=== PATIENT | male | born 1960 | race Caucasian/White ===

== ENCOUNTER 2019-09-10 14:09 | Emergency (ER) | payer OTHER ==
[~2019-09-10] VITALS: Ht 188 cm; Wt 132.0 kg
[2019-09-10 14:40] LABS: BASO # 0.1 x10^3/uL (0.0-0.2); BASO % 1 % (0-3); EOS # 0.1 x10^3/uL (0.0-0.7); EOS % 1 % (0-3); HEMATOCRIT 44.6 % (39.0-53.0); HEMOGLOBIN 14.8 g/dL (13.0-17.5); LYMPH # 3.7 x10^3/uL (1.0-4.8); LYMPH % 45 % (24-48); MEAN CORPUSCULAR HEMOGLOBIN 29 pg (25-35); MEAN CORPUSCULAR HGB CONC 33 g/dL (31-37); MEAN CORPUSCULAR VOLUME 89 fL (79-100); MONO # 0.6 x10^3/uL (0.0-1.1); MONO % 7 % (0-9); NEUT # 3.9 x10^3/uL (1.8-7.7); NEUT % 47 % (31-73); PLATELET COUNT 272 x10^3/uL (140-400); RED BLOOD COUNT 5.03 x10^6/uL (4.30-5.70); RED CELL DISTRIBUTION WIDTH 13.7 % (11.5-14.5); WHITE BLOOD COUNT 8.3 x10^3/uL (4.0-11.0)
[2019-09-10] MEDS ORDERED: ASPIRIN CHEWABLE 81 MG TABLET. PO ONE (14:45)
[2019-09-10 14:49] LABS: PROTHROMBIN TIME PATIENT 12.4 SEC (11.7-14.0)
[2019-09-10 14:52] LABS: D-DIMER 0.65 ug/mlFEU (0.00-0.50)
[2019-09-10 14:59] LABS: CALCIUM 9.2 mg/dL (8.5-10.1); CREATININE 1.2 mg/dL (0.7-1.3); GFR 62.2; POTASSIUM 3.8 mmol/L (3.5-5.1)
--- NOTE | 2019-09-10 15:03 | PHYS DOC ---
Past Medical History Past Medical History: Diabetes-Type II, High Cholesterol General Adult EDM: Chief Complaint: CHEST PAIN HPI: HPI: Patient is a 59 year old male with history of dyslipidemia and prediabetic who presents with complaining of chest pain. Patient stated he was doing moderate activity and about an hour prior to arrival felt moderate dull and pressure in substernal area without radiation associated with shortness of breath, dizziness, palpitation that lasted about 20 to 30 minutes and did not get better with rest. Patient was able to drive himself to the ER and denies chest pain or shortness of breath during the examination. Patient states he did yard working for the last few days without any chest pain and denies history of cardiac problem. Review of Systems: Review of Systems: Constitutional: Denies fever or chills. [] Eyes: Denies change in visual acuity. [] HENT: Denies nasal congestion or sore throat. [] Respiratory: Denies cough, reports shortness of breath. [] Cardiovascular: Denies chest pain or edema. [] GI: Denies abdominal pain, nausea, vomiting, bloody stools or diarrhea. [] : Denies dysuria. [] Musculoskeletal: Denies back pain or joint pain. [] Integument: Denies rash. [] Neurologic: Denies headache, focal weakness or sensory changes. [] Endocrine: Denies polyuria or polydipsia. [] Lymphatic: Denies swollen glands. [] Psychiatric: Denies depression or anxiety. [] Heart Score: HEART Score for Chest Pain: HEART Score for Chest Pain Response (Comments) Value History Moderately Suspicious 1 ECG Nonspecific Repolarizatio 1 Age >45 - < 65 1 Risk Factors >3 Risk Factors or Hx CAD 2 Troponin < Normal Limit 0 Total 5 Risk Factors: Risk Factors: DM, Current or recent (<one month) smoker, HTN, HLP, family history of CAD, obesity. Risk Scores: Score 0 - 3: 2.5% MACE over next 6 weeks - Discharge Home Score 4 - 6: 20.3% MACE over next 6 weeks - Admit for Clinical Observation Score 7 - 10: 72.7% MACE over next 6 weeks - Early Invasive Strategies Current Medications: Current Medications Medications (Trade) Dose Ordered Sig/Ban Start Time Stop Time Status Last Admin Dose Admin Aspirin (Aspirin Chewable) 324 mg 1X ONCE 09/10/19 14:45 09/10/19 14:52 DC Allergies: Allergies: Allergies Coded Allergies Type Severity Reaction Last Updated Verified No Known Drug Allergies 09/10/19 No Physical Exam: PE: Constitutional: Well developed, well nourished, no acute distress, non-toxic appearance. [] HENT: Normocephalic, atraumatic, bilateral external ears normal, oropharynx moist, no oral exudates, nose normal. [] Eyes: PERRLA, EOMI, conjunctiva normal, no discharge. [] Neck: Normal range of motion, no tenderness, supple, no stridor. [] Cardiovascular: Tachycardia, no murmur [] Lungs & Thorax: Bilateral breath sounds clear to auscultation [] Abdomen: Bowel sounds normal, soft, no tenderness, no masses, no pulsatile masses. [] Skin: Warm, dry, no erythema, no rash. [] Back: No tenderness, no CVA tenderness. [] Extremities: No tenderness, no cyanosis, no clubbing, ROM intact, no edema. [] Neurologic: Alert and oriented X 3, normal motor function, normal sensory function, no focal deficits noted. [] Psychologic: Affect normal, judgement normal, mood normal. [] Current Patient Data: Labs: Laboratory Tests Test 09/10/19 14:20 White Blood Count 8.3 x10^3/uL (4.0-11.0) Red Blood Count 5.03 x10^6/uL (4.30-5.70) Hemoglobin 14.8 g/dL (13.0-17.5) Hematocrit 44.6 % (39.0-53.0) Mean Corpuscular Volume 89 fL (79-100) Mean Corpuscular Hemoglobin 29 pg (25-35) Mean Corpuscular Hemoglobin Concent 33 g/dL (31-37) Red Cell Distribution Width 13.7 % (11.5-14.5) Platelet Count 272 x10^3/uL (140-400) Neutrophils (%) (Auto) 47 % (31-73) Lymphocytes (%) (Auto) 45 % (24-48) Monocytes (%) (Auto) 7 % (0-9) Eosinophils (%) (Auto) 1 % (0-3) Basophils (%) (Auto) 1 % (0-3) Neutrophils # (Auto) 3.9 x10^3/uL (1.8-7.7) Lymphocytes # (Auto) 3.7 x10^3/uL (1.0-4.8) Monocytes # (Auto) 0.6 x10^3/uL (0.0-1.1) Eosinophils # (Auto) 0.1 x10^3/uL (0.0-0.7) Basophils # (Auto) 0.1 x10^3/uL (0.0-0.2) Prothrombin Time 12.4 SEC (11.7-14.0) Prothrombin Time INR 1.0 (0.8-1.1) D-Dimer (Junie) 0.65 ug/mlFEU (0.00-0.50) H Laboratory Tests 09/10/19 14:20 EKG: EKG: EKG interpreted by me. EKG at 1417 showed sinus tachycardia at rate of 107, normal CT and QT intervals, poor R wave progression anteroseptal leads, no acute ST and T wave elevation. Radiology/Procedures: Radiology/Procedures: [facility] [address] [place] [address] IMAGING REPORT Signed PATIENT: HEMANTH BARCLAY ACCOUNT: [id number] : 1960 LOCATION: ER AGE: 59 SEX: M EXAM STATUS: REG ER ORD. PHYSICIAN: MIREYA BLACK MD REASON: chest pain PROCEDURE: PORTABLE CHEST 1V PORTABLE CHEST 1V History: Chest pain Comparison: None. Findings: Low lung volumes. No consolidation or pleural effusion. Normal heart size. No pneumothorax. Impression: 1. No acute cardiopulmonary process. Electronically signed by: Kavon Reyes DO (09/10/2019 3:36 PM) [id number] DICTATED and SIGNED BY: KAVON REYES DO DATE: 09/10/19 1536 Course & Med Decision Making: Course & Med Decision Making Pertinent Labs and Imaging studies reviewed. (See chart for details) Evaluation of patient in ER showed 59-year-old male patient with heart score of 5 with complaining of chest pain and shortness of breath after moderate activity. Patient had unremarkable EKG and labs and chest x-ray. Patient was chest pain-free in ER. I offered patient hospitalization but he prefers to go home. Patient PCP Dr. Carbone was consulted at 1555 and agreed with discharging patient home and plans to ordering outpatient cardiology consult and stress and echo test. I've spoken with the patient and/or caregivers. I've explained the patient's condition, diagnosis and treatment plan based on information available to me at this time. I've answered the patient's and/or caregivers questions and addressed any concerns. The patient and/or caregivers have a good understanding the patient's diagnosis, condition and treatment plan as can be expected at this point. Vital signs have been stabilized. The patient's condition is stable for discharge from the emergency department. The patient will pursue further outpatient evaluation with her primary care provider or other designated consulting physician as outlined in the discharge instructions. Patient and/or caregivers are agreeable to this plan of care and follow-up instructions have been explained in detail. The patient and/or caregivers have received these instructions in written format and expressed understanding of these discharge instructions. The patient and her caregivers are aware that if any significant change in condition or worsening of symptoms should prompt him to immediately return to this of the closest emergency de partment. If an emergent department is not readily available I would encourage him to call 911. Chelsi Disclaimer: Chelsi Disclaimer: This electronic medical record was generated, in whole or in part, using a voice recognition dictation system. Departure Departure Impression: Primary Impression: Acute chest pain Disposition: HOME, SELF-CARE (At 1559) Condition: IMPROVED Referrals: NILO BROWN MD (PCP) Patient Instructions: Chest Pain (Nonspecific) Additional Instructions: Continue current medication Follow-up with your primary care physician i for outpatient stress test and cardiology appointment Return to ER if not getting better Avoid of heavy activity Thank you for visiting [facility]. We appreciate you trusting us with your care. If any additional problems come up don't hesitate to return to visit us. Please follow up with your primary care provider so they can plan additional care if needed and know about the problem that you had. If symptoms worsen come back to the Emergency Department. Any concerning symptoms that start such as chest pain, shortness of air, weakness or numbness on one side of the body, running high fevers or any other concerning symptoms return to the ER. MIREYA BLACK MD Sep 10, 2019 15:03
[2019-09-10 15:05] LABS: ALBUMIN/GLOBULIN RATIO 1.2 (1.0-1.7); MAGNESIUM 1.8 mg/dL (1.8-2.4); TOTAL BILIRUBIN 0.7 mg/dL (0.2-1.0); TOTAL PROTEIN 7.3 g/dL (6.4-8.2)
--- NOTE | 2019-09-10 15:38 | RAD ---
PORTABLE CHEST 1V History: Chest pain Comparison: None. Findings: Low lung volumes. No consolidation or pleural effusion. Normal heart size. No pneumothorax. Impression: 1. No acute cardiopulmonary process. Electronically signed by: Kavon Reyes DO (09/10/2019 3:36 PM) [id number]
[2019-09-10 15:45] VITALS: BP 138/84
--- NOTE | 2019-09-10 16:03 | EKG ---
[facility] [address] [place] [address] Test Date: 2019-09-10 Test Time: 14:17:13 Pat Name: HEMANTH BARCLAY Department: Room: Gender: M Surgery Aid: : 1960 Requested By: MIREYA BLACK Order Number: [id number] Reading MD: Lonnie Littlejohn Measurements Intervals [place] Rate: 106 P: 41 NM: 156 QRS: 39 QRSD: 102 T: 47 QT: 354 QTc: 478 Interpretive Statements SINUS TACHYCARDIA NONSPECIFIC ST-T WAVE CHANGES. Electronically Signed On 09-11-2019 9:22:44 CDT by Lonnie Littlejohn
[2019-09-15] MEDS ORDERED: ASPI81TA50 PO (09:08)
[2019-09-15] MEDS ORDERED: ATOR20TA58 PO (09:09)
[2019-09-15] MEDS ORDERED: METF500T16 PO (09:09)
[2019-09-15] MEDS ORDERED: ATOR40TA59 PO (10:56)
[2019-09-15] MEDS ORDERED: PRAS10TA9 PO (10:56)
[2019-09-15] MEDS ORDERED: METO25TA4 PO (10:56)
[2019-09-15] MEDS ORDERED: ASPI325T8 PO (11:00)
== END 2019-09-10 16:12 | disposition home or self-care (01) ==
LOC: ER 14:09
DX: R07.2 Precordial pain (principal); E11.9 Type 2 diabetes mellitus without complications; E78.00 Pure hypercholesterolemia, unspecified
CPT/HCPCS: 36415; 71045; 80053; 82550; 83690; 83735; 83880; 84484; 85025; 85379; 85610; 93005; 99285

== ENCOUNTER → 2019-09-15 | Outpatient (CLI) | payer OTHER ==
[2019-09-15] VITALS (17 sets, daily range): BP systolic 94–133; BP diastolic 60–84
[~2019-09-15] VITALS: Ht 188 cm; Wt 128.8 kg
[~2019-09-15] MED LIST: ASPI325T8 PO; ASPI81TA50 PO; ASPIRIN 325 MG TABLET ONE; ASPIRIN 325 MG TABLET PO ONE; ASPIRIN ENTERIC COATED 325 MG TABLET.DR. PO SCH; ATOR20TA58 PO; ATOR40TA59 PO; ATORVASTATIN CALCIUM 20 MG TABLET PO SCH; BIVALIRUDIN 250 MG VIAL. IV ONE; HEPARIN for IV BOLUS 10,000 UNIT/10 ML VIAL. IART ONE; HEPARIN for IV BOLUS 10,000 UNIT/10 ML VIAL. ONE; IODIXANOL 320 MG/ML 100 ML VIAL. IART ONE; IODIXANOL 320 MG/ML 100 ML VIAL. ONE; IV 1/2 NORMAL SALINE 1,000 ML IV SCH; LIDOCAINE 1% PF 2 ML VIAL. INJ ONE; LIDOCAINE 1% PF 2 ML VIAL. ONE; METF500T16 PO; METO25TA4 PO; METOPROLOL TART IMMED RELEASE 25 MG TABLET. PO SCH; MIDAZOLAM HCL/PF 2 MG/2 ML VIAL. IV ONE; MIDAZOLAM HCL/PF 2 MG/2 ML VIAL. ONE; NITROGLYCERIN 200 MCG/2 ML SYRINGE FOR CATH/VASC LAB. IART ONE; NITROGLYCERIN 200 MCG/2 ML SYRINGE FOR CATH/VASC LAB. ONE; NITROGLYCERIN SUBLINGUAL 0.4 MG BOTTLE OF 25. SL PRN; PRAS10TA9 PO; PRASUGREL 10 MG TABLET. ONE; PRASUGREL 10 MG TABLET. PO ONE; PRASUGREL 10 MG TABLET. PO SCH; VERAPAMIL 5 MG/2 ML VIAL. IART ONE; VERAPAMIL 5 MG/2 ML VIAL. ONE; fentaNYL PF VIAL 100 MCG/2 ML VIAL IV ONE; fentaNYL PF VIAL 100 MCG/2 ML VIAL ONE
[2019-09-15 08:08] LABS: CALCIUM 9.3 mg/dL (8.5-10.1); GFR 76.7
[2019-09-15 08:23] LABS: HEMATOCRIT 45.9 % (39.0-53.0); HEMOGLOBIN 15.3 g/dL (13.0-17.5); RED BLOOD COUNT 5.21 x10^6/uL (4.30-5.70); RED CELL DISTRIBUTION WIDTH 13.8 % (11.5-14.5); WHITE BLOOD COUNT 8.3 x10^3/uL (4.0-11.0)
[2019-09-15 08:34] LABS: PROTHROMBIN TIME PATIENT 12.4 SEC (11.7-14.0)
--- NOTE | 2019-09-15 09:16 | PDOC ---
MODERATE SEDATION ASSESSMENT RISKS/ALTERNATIVES Risks/Alternatives Risks and alternatives of this type of sedation and procedure discussed with: RISK/ALTERNATIVES: Patient H & P ON CHART H & P H & P on chart and reviewed for co-morbid conditions and appropriate labs. H&P ON CHART: Yes STATUS PREG STATUS ASSESSED: N/A MEDS/ALLERGIES REVIEWED Meds/Allergies Reviewed Medications and Allergies including time and route of recently administered narcotics and sedatives. MEDS/ALLERGIES REVIEWED: Yes ASA RATING ASA RATING: II AIRWAY ASSESSMENT Airway Assessment Airway patency, oral function limitations, presence of caps, crowns, dentures, partials, and ability to extend neck assessed. AIRWAY ASSESSMENT: Yes MALLAMPATI SCORE MALLAMPATI SCORE: II PRE-SEDATION ASSESSMENT PRE-SEDATION ASSESSMENT: Yes SNOW DIAZ MD Sep 15, 2019 09:16
--- NOTE | 2019-09-15 09:25 | CARD ---
MR#: [id number] Date of Study: 09/15/2019 Ordering Physician: SNOW DIAZ, Referring Physician: SNOW DIAZ, Tech: Roderick Rojas APPROVED REPORT Technologist: Roderick Rojas Nurse: Toña Perales R.N. Procedure(s) performed: 1. Left heart catheterization, selective coronary angiography and left ventr iculography via right transradial approach 2. Successful PCI/drug-eluting stent placement to the left anterior ascending artery. fl time: 10.1 min dose: 107 gycm2 contrast: 158 ml moderate sedation: 43 MINS INDICATION The indication(s) include : unstable angina . CSHA Clinical Frailty Scale CSHA Clinical Frailty Scale: Managing Well Heart Failure Heart Failure: No PROCEDURE NARRATIVE After explaining the risks, benefits and alternative options, informed consent was obtained from toya ent. Patient was brought to the cardiac Dealership General Manager and right wrist was prepped and draped in the usual fashion after confirming a positive modified Molina's test. Arterial access was obtained in the righ t radial artery and a 6 [place] sheath was inserted. 6 [place] Deonte catheter was used to perform ana m ective angiography of the left and right coronary arteries. 6 [place] pigtail catheter was used to pe rform left ventriculography. The following findings were noted. FINDINGS 1. Hemodynamics: Left ventricular end-diastolic pressure of 7 mmHg. No pullback gradient across the aortic valve. 2. Left ventriculography: Normal left ventricle systolic function with ejection fraction estimated at 55%. No significant mitral regurgitation seen. 3. Coronary angiography: a. The left main coronary artery arose from the left sinus of Valsalva, gave rise to the left anteri or descending and left circumflex arteries and did not show any significant stenosis. b. The left anterior descending artery showed 90 to 95% stenosis involving the proximal to mid segme nt and 40% bifurcation stenosis involving mid to distal segment. c. The left circumflex artery was a large and dominant vessel that did not show any significant sten osis. d. The right coronary artery was a small and nondominant vessel that did not show any significant st enosis. INTERVENTION The left main coronary artery was engaged with a 6 [place] XB 3.5 guide catheter. The stenosis in the proximal to mid segment of the left anti-descending artery was crossed with a 0.014 inch AsaZola pro-w ater guidewire. This was predilated with a 2.5 x 15 mm trek balloon following which this was success fully treated with a 3.0 x 18 mm Amado Xience Negrita drug-eluting stent. Follow-up angiography show ed resolution of the stenosis to 0% with HERNANDEZ-3 distal flow. Patient tolerated the procedure well. Hemostasis was achieved using TR band. There were no immediate complications. HERNANDEZ Flow HERNANDEZ Flow (Pre-Intervention): HERNANDEZ-2 HERNANDEZ Flow (Post-Intervention): HERNANDEZ-3 Conclusion 1. Severe single-vessel coronary disease. 2. Successful PCI/drug-eluting stent placement to the left anterior descending artery. 3. Normal left ventricular systolic function with ejection fraction estimated at 55%. Recommendations 1. Aspirin 325 mg daily for 1 month followed by 81 mg daily. 2. Prasugrel 10 mg daily. 3. Cardiovascular risk factor modification including smoking cessation. Signed by : Snow Diaz, Electronically Approved : 09/15/2019 09:24:46
--- NOTE | 2019-09-15 12:46 | NUR ---
referral sent to cardiac rehab.
--- NOTE | 2019-09-15 14:20 | NUR ---
pt A&O x3. denies pain, nausea or dizziness. VSS. tolerating po well. ambulated to Br w/o problem. rt radial site cleaned and dry dressing applied. armboard reapplied to rt hand/wrist area. scripts for nitro sl , atorvastatin , metoprolol and effient called into pt's pharmacy. d/c instructions given. questions answered. out to vehicle per w/c. pt's to drive him home
== END ==
LOC: CCL 07:20
PROVIDERS: ATTEND Internal Medicine Cardiovascular Disease
DX: I25.110 Atherosclerotic heart disease of native coronary artery with unstable angina pectoris (principal); E11.9 Type 2 diabetes mellitus without complications; E78.5 Hyperlipidemia, unspecified; F17.210 Nicotine dependence, cigarettes, uncomplicated; Z79.82 Long term (current) use of aspirin; Z79.84 Long term (current) use of oral hypoglycemic drugs
CPT/HCPCS: 36415; 80048; 85027; 85610; 93458; 99152; 99153; C1725; C1769; C1874; C1887; C1892; C9600; J0583; J1644; J2250; J3010; J3490; Q9967; 92928; C1713

== ENCOUNTER → 2020-05-04 | Outpatient (CLI) | payer BC ==
[2019-09-15 13:59] VITALS: BP 118/69
[~2020-05-04] MED LIST changes: -ASPIRIN 325 MG TABLET ONE; -ASPIRIN 325 MG TABLET PO ONE; -ASPIRIN ENTERIC COATED 325 MG TABLET.DR. PO SCH; -ATORVASTATIN CALCIUM 20 MG TABLET PO SCH; -BIVALIRUDIN 250 MG VIAL. IV ONE; -HEPARIN for IV BOLUS 10,000 UNIT/10 ML VIAL. IART ONE; -HEPARIN for IV BOLUS 10,000 UNIT/10 ML VIAL. ONE; -IODIXANOL 320 MG/ML 100 ML VIAL. IART ONE; -IODIXANOL 320 MG/ML 100 ML VIAL. ONE; -IV 1/2 NORMAL SALINE 1,000 ML IV SCH; -LIDOCAINE 1% PF 2 ML VIAL. INJ ONE; -LIDOCAINE 1% PF 2 ML VIAL. ONE; -METOPROLOL TART IMMED RELEASE 25 MG TABLET. PO SCH; -MIDAZOLAM HCL/PF 2 MG/2 ML VIAL. IV ONE; -MIDAZOLAM HCL/PF 2 MG/2 ML VIAL. ONE; -NITROGLYCERIN 200 MCG/2 ML SYRINGE FOR CATH/VASC LAB. IART ONE; -NITROGLYCERIN 200 MCG/2 ML SYRINGE FOR CATH/VASC LAB. ONE; -NITROGLYCERIN SUBLINGUAL 0.4 MG BOTTLE OF 25. SL PRN; -PRASUGREL 10 MG TABLET. ONE; -PRASUGREL 10 MG TABLET. PO ONE; -PRASUGREL 10 MG TABLET. PO SCH; -VERAPAMIL 5 MG/2 ML VIAL. IART ONE; -VERAPAMIL 5 MG/2 ML VIAL. ONE; -fentaNYL PF VIAL 100 MCG/2 ML VIAL IV ONE; -fentaNYL PF VIAL 100 MCG/2 ML VIAL ONE
--- NOTE | 2020-05-04 09:10 | CARD ---
MR#: [id number] Date of Study: 05/04/2020 Ordering Physician: SNOW DIAZ, Referring Physician: SNOW DIAZ, Tech: Michelle Veliz RACHEL APPROVED REPORT EXAM: Two-dimensional and M-mode echocardiogram with Doppler and color Doppler. Other Information Quality : AdequateHR: 69bpm Rhythm : NSR INDICATION CAD Hx: PCI, HLP, DM, obesity 2D DIMENSIONS RVDd3.4 (2.9-3.5cm)IVSd0.9 (0.7-1.1cm) Aortic Root(2D)3.7 (2.0-3.7cm)LVDd6.2 (3.9-5.9cm) LVOT Diameter2.2 (1.8-2.4cm)PWd0.9 (0.7-1.1cm) LVDs5.1 (2.5-4.0cm)FS (%) 17.8 % SV70.4 mlLVEF(%)36.2 (>50%) Aortic Valve AoV Peak Júnior.109.2cm/Juaquin Peak GR.4.8mmHg Mitral Valve MV E Ikettmxu16.0cm/sMV DECEL [id number] MV A Rkwxxwtl85.0cm/sE/A Ratio0.7 MV A [id number] Pulmonary Valve PV Peak Bzgbdrxe84.0cm/s Tricuspid Valve RAP [id number] LEFT VENTRICLE The Left Ventricle is mildly dilated. There is normal left ventricular wall thickness. Left ventricul ar systolic function is within normal limits. EF 55%. Basal to mid inferior wall is moderately hypoki netic. Otherwise, normal wall motion. Mild diastolic dysfunction. Grade I. RIGHT VENTRICLE The right ventricle is normal size. The right ventricular systolic function is normal. ATRIA The left atrium size is normal. The right atrium size is normal. The interatrial septum is intact wit h no evidence for an atrial septal defect or patent foramen ovale as noted on 2-D or Doppler imaging. AORTIC VALVE The aortic valve is normal in structure and function. No aortic regurgitation. No aortic valvular gisell nosis. MITRAL VALVE The mitral valve is normal in structure and function. There is no mitral valve stenosis. No mitral va lve regurgitation noted. TRICUSPID VALVE The tricuspid valve is normal in structure and function. No tricuspid valve regurgitation noted. Unab le to assess PA pressures. There is no tricuspid valve stenosis. PULMONIC VALVE The pulmonic valve is not well visualized. GREAT VESSELS The aortic root is normal in size. Ascending aorta measures at the upper limits of normal. The IVC is normal in size and collapses >50% with inspiration. PERICARDIAL EFFUSION There is no evidence of significant pericardial effusion. Critical Notification Critical Value: No <Conclusion> Left ventricular systolic function is within normal limits. EF 55%. Basal to mid inferior wall is moderately hypokinetic. Otherwise, normal wall motion. Signed by : Stas Mello, Electronically Approved : 05/04/2020 09:09:50
--- NOTE | 2020-05-04 13:05 | RAD ---
MR#: [id number] Date of Study: 05/04/2020 Ordering Physician: SNOW DIAZ, Referring Physician: SNOW DIAZ, Tech: Nakul Branham RDMS, RVT APPROVED REPORT Patient Location: OUT-PATIENT Laterality:Bilateral Indications Some Lightheadedness when beding over and standing back up. Risk Factors Diabetes Smoking coronary artery disease Doppler Spectral Velocity Analysis Right Left pCCA 104/16 cm/spCCA 118/20 cm/s mCCA 122/19 cm/smCCA 107/19 cm/s dCCA 93/20 cm/sdCCA 105/19 cm/s Bulb 71/13 cm/sBulb 72/15 cm/s ECA 148/ cm/sECA 112/ cm/s pICA 89/21 cm/spICA 75/23 cm/s Meme 71/22 cm/smICA 101/28 cm/s dICA 67/20 cm/sdICA 93/35 cm/s Vert. 52/ cm/sVert. 47/ cm/s ICA/CCA 0.73ICA/CCA 0.86 Findings Grayscale images of the bilateral carotid vasculature demonstrates mild intimal hyperplasia without a ny focal obstructive plaque. Spectral waveforms and color Doppler are overall consistent with 0 to l ess than 50% stenosis. Normal ICA to CCA ratios. Normal vertebral antegrade velocities. Critical Notification Critical Value: No <Conclusion> 1. No significant carotid occlusive disease bilaterally Signed by : Stas Mello, Electronically Approved : 05/04/2020 13:04:28
== END ==
LOC: ECHO 07:53
PROVIDERS: ATTEND Internal Medicine Cardiovascular Disease
DX: I65.23 Occlusion and stenosis of bilateral carotid arteries (principal); I25.10 Atherosclerotic heart disease of native coronary artery without angina pectoris
CPT/HCPCS: 93306; 93880

== ENCOUNTER → 2020-11-03 | Outpatient (CLI) | payer BC ==
[2019-09-15 13:59] VITALS: BP 118/69
--- NOTE | 2020-11-03 14:48 | RAD ---
MR#: [id number] Date of Study: 11/03/2020 Ordering Physician: SNOW DIAZ, Referring Physician: SHY SR Tech: KEREN Buckley APPROVED REPORT Test Type: Exercise Stress Nurse/Tech: Marcel Edmond RN Test Indications: CAD Cardiac History: Stent 2020, HTN, DM Medications: See Electronic Medical Record Medical History: See Electronic Medical Record Resting ECG: SR Resting Heart Rate: 72 bpm Resting Blood Pressure: 140/78mmHg Pretest Chest Pain: None Nurse/Tech Notes Lungs CTA, S1S2 Consent: The procedure was explained to the patient in lay terms. Informed consent was witnessed. Brian eout was entered into [employer]. History and Stress Test performed by KEREN Buckley Stress Symptoms No chest pain or symptoms. POST EXERCISE Reason for Termination: Reached target heart rate Target HR: Yes Max HR: 155 bpm 96% of Maximum Predicted HR: 161 bpm Exercise duration: 5:56 min:sec, Stage Exercise capacity: 7METs Max Blood Pressure: 148/72mmHg Blood Pressure response to exercise: Normal blood pressure response during stress. Heart Rate response to exercise: Normal response Chest Pain: No. Arrhythmia: No. INTERPRETATION Stress EKG Conclusion: The resting EKG shows a sinus rhythm. The stress EKG shows no significant changes from baseline. No EKG evidence of stress-induced ischemia. Imaging Protocol IMAGE PROTOCOL: Rest Tc-99m/stress Tc-99m 1 day Rest: Stress: Viability: Radiopharm.Tc99m KaydfvywmKo42m Sestamibi Qday72uAr 31mCi Duration 15min. 13min. Img Date 11/03/2020 11/03/2020 Inj-Img Punc26kos. 60min. Post-Injection Exercise: 1 minute Rest Admin Site:IV - Right HandAdministrator:ALBA Allred, ARRT (R)(N) Stress Admin Site: IV - Right HandAdministrator: ALBA Allred, ARRT (R)(N) STRESS DATA End Diast. Vol.121.0mlLVEDV index BSA48.0ml End Syst. Vol.43.0mlLVESV index BSA17.0ml Myocardial Srdm131.0gEject. Ffafvqwg67.0% Stress Scores Regional WT0.00Summed WT6.00 Regional WM0.00Summed WM0.00 LV Perfusion The stress scans show no significant defects. The rest scans show no significant defects. Nuclear imaging shows no reversible ischemia or infarct. Wall Motion Left ventricular systolic function is intact with no regional wall motion abnormalities and an ejecti on fraction of 62%. LV Perf. Quant 17 Seg. SSS1.00 17 Seg. SRS8.00 17 Seg. SDS0.00 Stress Defect Extent (% LAD)0.00Rest Defect Extent (% LAD)26.90Rev. Defect Extent (% LAD)0.00 Stress Defect Extent (% LCX) 11.30Rest Defect Extent (% LCX)18.80Rev. Defect Extent (% LCX)0.00 Stress Defect Extent (% RCA)0.00Rest Defect Extent (% RCA)3.30Rev. Defect Extent (% RCA)0.00 Stress Defect Extent (% LARRY)3.70Rest Defect Extent (% LARRY)19.30Rev. Defect Extent (% LARRY)0.00 Conclusion 1. Good exercise tolerance with the patient walking for 5 minutes and 56 seconds on a Panfilo protocol. 2. No chest pain with exertion. 3. No EKG evidence of stress-induced ischemia. 4. Nuclear imaging shows no reversible ischemia or infarct. 5. Left ventricular ejection fraction of 62% with no regional wall motion abnormalities. 6. Low risk treadmill nuclear stress test. Signed by : Lonnie Littlejohn MD Electronically Approved : 11/03/2020 14:48:09
== END ==
LOC: NM 08:17
PROVIDERS: ATTEND Internal Medicine Cardiovascular Disease
DX: I25.10 Atherosclerotic heart disease of native coronary artery without angina pectoris (principal); I10 Essential (primary) hypertension
CPT/HCPCS: 78452; 93017; A9500

== ENCOUNTER 2021-01-24 11:17 | Observation (INO) | payer BC ==
[~2021-01-24] VITALS: Ht 188 cm; Wt 136.6 kg
--- NOTE | 2021-01-24 11:45 | PHYS DOC ---
Past Medical History Past Medical History: Diabetes-Type II, High Cholesterol Past Surgical History: Other Additional Past Surgical Histo: R hand surgery Smoking Status: Current Some Day Smoker Alcohol Use: None General Adult EDM: Chief Complaint: CHEST PAIN HPI: HPI: 89-year-old male with a history of high cholesterol, diabetes, hypertension, smoking presents to the emergency department complaining of chest pain on the right side of his chest that feels like a "twinge ", intermittently feels like an "egg was stuck in my throat ". He reports the pain started approximately 40 minutes ago, is coming less frequently and is intermittent in nature. The pain started while he was doing yard work picking up sticks in the yard. He reports his symptoms are currently mild. He endorses diaphoresis when he was having [address] pain originally. The patient denies nausea, vomiting, fever, chills, shortness of breath, abdominal pain, urinary symptoms, cough, recent trauma, or any other complaints. Review of Systems: Review of Systems: Constitutional: Denies fever or chills. Eyes: Denies change in vision, pain. HENT: Denies congestion or sore throat. Respiratory: Denies cough or shortness of breath. Cardiovascular: Admits to chest pain, denies edema. GI: Denies abdominal pain, nausea. : Denies change in urination, dysuria. Musculoskeletal: Denies extremity pain, or trauma. Skin: Denies rash, skin change. Neurologic: Denies headache, focal weakness. Psychiatric: Denies depression or anxiety. All other systems reviewed as negative except for what was mentioned in the HPI. Heart Score: C/O Chest Pain: Yes HEART Score for Chest Pain: HEART Score for Chest Pain Response (Comments) Value History Moderately Suspicious 1 ECG Normal 0 Age >45 - < 65 1 Risk Factors >3 Risk Factors or Hx CAD 2 Troponin < Normal Limit 0 Total 4 Allergies: Allergies: Allergies Coded Allergies Type Severity Reaction Last Updated Verified No Known Drug Allergies 09/10/19 No Physical Exam: PE: Constitutional: No acute distress, non-toxic appearance. HENT: Atraumatic, bilateral external ears normal, nose normal. Eyes: PERRLA, EOMI, conjunctiva normal, no discharge. Neck: Normal range of motion, supple, no stridor. Cardiovascular: Heart rate regular rhythm. 2+ radial pulses Lungs & Thorax: No respiratory distress, symmetrical expansion. Abdomen: Soft, no tenderness Skin: Warm, dry. Extremities: No tenderness, no cyanosis, ROM intact, no edema. Neurologic: Alert and oriented X 3, normal motor function, normal sensory function, no focal deficits noted. Non ataxic gait. GCS 15. Psychologic: Affect normal, judgment normal, mood normal. Current Patient Data: Labs: Laboratory Tests Test 01/24/21 11:42 White Blood Count 8.3 x10^3/uL (4.0-11.0) Red Blood Count 4.95 x10^6/uL (4.30-5.70) Hemoglobin 15.0 g/dL (13.0-17.5) Hematocrit 43.6 % (39.0-53.0) Mean Corpuscular Volume 88 fL (79-100) Mean Corpuscular Hemoglobin 30 pg (25-35) Mean Corpuscular Hemoglobin Concent 34 g/dL (31-37) Red Cell Distribution Width 13.3 % (11.5-14.5) Platelet Count 270 x10^3/uL (140-400) Neutrophils (%) (Auto) 58 % (31-73) Lymphocytes (%) (Auto) 33 % (24-48) Monocytes (%) (Auto) 7 % (0-9) Eosinophils (%) (Auto) 1 % (0-3) Basophils (%) (Auto) 1 % (0-3) Neutrophils # (Auto) 4.8 x10^3/uL (1.8-7.7) Lymphocytes # (Auto) 2.7 x10^3/uL (1.0-4.8) Monocytes # (Auto) 0.6 x10^3/uL (0.0-1.1) Eosinophils # (Auto) 0.1 x10^3/uL (0.0-0.7) Basophils # (Auto) 0.0 x10^3/uL (0.0-0.2) Sodium Level 139 mmol/L (136-145) Potassium Level 4.0 mmol/L (3.5-5.1) Chloride Level 103 mmol/L (98-107) Carbon Dioxide Level 27 mmol/L (21-32) Anion Gap 9 (6-14) Blood Urea Nitrogen 13 mg/dL (8-26) Creatinine 1.2 mg/dL (0.7-1.3) Estimated GFR (Cockcroft-Gault) 62.0 Glucose Level 162 mg/dL (70-99) Calcium Level 9.4 mg/dL (8.5-10.1) Troponin I Quantitative < 0.017 ng/mL (0.000-0.055) AP-Adw-U-Type Natriuretic Peptide 23 pg/mL (0-124) Vital Signs: Vital Signs Date Time Temp Pulse Resp B/P (MAP) Pulse Ox O2 Delivery O2 Flow Rate FiO2 01/24/21 11:53 98.1 88 18 145/85 (100) 97 Room Air 98.1 EKG: EKG: Normal sinus rhythm rate of 95, no ST-T wave changes, no ectopic beats, normal axis, normal AL, QRS, and QTc intervals. Impression: Normal EKG. interpreted by Cherie garcia D.O. Radiology/Procedures: Radiology/Procedures: EXAM: Chest, single view. HISTORY: Chest pain. COMPARISON: None. FINDINGS: A frontal view of the chest is obtained. There are relative decreased lung volumes. There is mild diffuse interstitial prominence. There is no consolidation, pleural effusion or pneumothorax. There is a prominent cardiac s ilhouette, likely accentuated due to portable technique. IMPRESSION: Mild interstitial prominence likely due to relative decreased lung volumes. There is no consolidated infiltrate or chris congestion. Electronically signed by: Conchita Garvey MD (01/24/2021 12:16 PM) Course & Med Decision Making: Course & Med Decision Making My Orders - CHERIE WILLSON DO Procedure Category Date Status Time Basic Metabolic Panel LAB 01/24/21 Complete 11:41 Cbc W Autodiff LAB 01/24/21 Complete 11:41 Portable Chest 1v RAD 01/24/21 Resulted 11:41 Nt-Pro Bnp LAB 01/24/21 Complete 11:41 Troponini LAB 01/24/21 Complete 11:41 Troponini LAB 01/24/21 Logged 14:41 Troponini LAB 01/24/21 Logged 17:41 Sars Cov2 (Anna) LAB 01/24/21 Logged 11:55 Sars-Cov-2 Antibody, LAB 01/24/21 Logged Igg,Dickson 11:55 Patient with heart score 4, will admit for abs, was offered pain medicine and refused. EKG does not show ST elevation or ischemic change. Patient will be admitted to Dr. Brown Departure Departure Impression: Primary Impression: Chest pain Disposition: HOME / SELF CARE / HOMELESS Admitting Physician: Katherin Brown Condition: STABLE Referrals: KATHERIN BROWN MD (PCP) CHERIE WILLSON DO Jan 24, 2021 11:45
[2021-01-24 11:55] LABS: BASO % 1 % (0-3); EOS # 0.1 x10^3/uL (0.0-0.7); EOS % 1 % (0-3); HEMATOCRIT 43.6 % (39.0-53.0); LYMPH # 2.7 x10^3/uL (1.0-4.8); LYMPH % 33 % (24-48); MEAN CORPUSCULAR HEMOGLOBIN 30 pg (25-35); MEAN CORPUSCULAR HGB CONC 34 g/dL (31-37); MEAN CORPUSCULAR VOLUME 88 fL (79-100); MONO # 0.6 x10^3/uL (0.0-1.1); MONO % 7 % (0-9); NEUT # 4.8 x10^3/uL (1.8-7.7); NEUT % 58 % (31-73); PLATELET COUNT 270 x10^3/uL (140-400); RED BLOOD COUNT 4.95 x10^6/uL (4.30-5.70); RED CELL DISTRIBUTION WIDTH 13.3 % (11.5-14.5); WHITE BLOOD COUNT 8.3 x10^3/uL (4.0-11.0)
[2021-01-24 12:11] LABS: CALCIUM 9.4 mg/dL (8.5-10.1); CREATININE 1.2 mg/dL (0.7-1.3)
--- NOTE | 2021-01-24 12:19 | RAD ---
EXAM: Chest, single view. HISTORY: Chest pain. COMPARISON: None. FINDINGS: A frontal view of the chest is obtained. There are relative decreased lung volumes. There i s mild diffuse interstitial prominence. There is no consolidation, pleural effusion or pneumothorax. There is a prominent cardiac silhouette, likely accentuated due to portable technique. IMPRESSION: Mild interstitial prominence likely due to relative decreased lung volumes. There is no c onsolidated infiltrate or chris congestion. Electronically signed by: Conchita Garvey MD (01/24/2021 12:16 PM) [id number]
--- NOTE | 2021-01-24 18:43 | EKG ---
[facility] [address] [place] [address] Test Date: 2021-01-24 Test Time: 11:24:57 Pat Name: HEMANTH BARCLAY Department: Room: ED HOLD 4 Gender: M Utility Bill Collector: : 1960 Requested By: CHERIE WILLSON Order Number: [id number] Reading MD: Measurements Intervals [place] Rate: 95 P: 34 CO: 122 QRS: 13 QRSD: 158 T: 0 QT: 402 QTc: 509 Interpretive Statements SINUS RHYTHM NON SPECIFIC INTRAVENTRICULAR BLOCK QRS(T) CONTOUR ABNORMALITY CONSIDER INFERIOR MYOCARDIAL DAMAGE ABNORMAL ECG RI6.02 No previous ECG available for comparison
[2021-01-24 19:00] VITALS: BP 139/76
[2021-01-24] MEDS ORDERED: DEXTROSE 50% 25 GM / 50ML DISP.SYRIN. IV PRN (21:45)
[2021-01-24 23:00] VITALS: BP 121/78
[2021-01-25 02:53] VITALS: BP 131/83
[2021-01-25 07:00] VITALS: BP 116/66
[2021-01-25 07:24] LABS: ALBUMIN 3.6 g/dL (3.4-5.0); CHOLESTEROL/HDL RATIO 3.6; DIRECT BILIRUBIN 0.2 mg/dL (0.0-0.2); TOTAL BILIRUBIN 0.9 mg/dL (0.2-1.0); TOTAL PROTEIN 6.8 g/dL (6.4-8.2)
[2021-01-25] MEDS ORDERED: INSULIN LISPRO 300 UNITS/3 ML VIAL. SQ SCH (08:00)
[2021-01-25] MEDS ORDERED: metFORMIN 500 MG TABLET PO SCH (08:00)
[2021-01-25] MEDS ORDERED: ASPIRIN 325 MG TABLET PO SCH (09:00)
[2021-01-25] MEDS ORDERED: METOPROLOL TART IMMED RELEASE 25 MG TABLET. PO SCH (09:00)
[2021-01-25] MEDS ORDERED: ATORVASTATIN CALCIUM 40 MG TABLET. PO SCH (09:00)
--- NOTE | 2021-01-25 09:08 | PDOC ---
Provider Note Date of Service: DATE: 01/25/21 TIME: 09:07 Provider Note Pt seen.H&P dictated.#[id number]. Justifications for Admission Other Justification NILO BROWN MD Jan 25, 2021 09:08
[2021-01-25] MEDS ORDERED: ASPIRIN ENTERIC COATED 81 MG TABLET.DR. PO SCH (10:00)
--- NOTE | 2021-01-25 10:29 | HP ---
ADMIT DATE: 01/25/2021 PATIENT'S LOCATION: [facility]. REASON FOR ADMISSION TO THE HOSPITAL: Chest pain. The patient has a known history of cardiac stent. HISTORY OF PRESENT ILLNESS: The patient is a 60-year-old male. The patient has a history of diabetes, hypertension, hyperlipidemia and he was doing yard work yesterday, so noticed some pain and got progressively worse, came to the Emergency Room. His EKG was negative. Troponin was negative. The patient had a cardiac stent 2 years ago, had a stress test 6 months ago, negative for ischemia. Had a single vessel LAD stent. PAST MEDICAL HISTORY: As mentioned above, history of diabetes, hypertension, coronary artery disease, previous cardiac stent. PAST SURGICAL HISTORY: Cardiac stent. ALLERGIES: No known allergies. PERSONAL HISTORY: Smoker, 1 pack. Denies alcohol. Denies any street drugs. No vaccination. MEDICATIONS: At home, the patient is on aspirin 81 mg daily, atorvastatin 40 mg daily, metformin 500 mg daily, metoprolol 25 mg daily. REVIEW OF SYMPTOMS: Has some chills. No chest pain. Now, feels better. No shortness of breath and rest of 14-systems reviewed and negative. PHYSICAL EXAMINATION: GENERAL: The patient is pleasant, not in any distress. VITAL SIGNS: Temperature 98, pulse 80, respirations 18, blood pressure 145/88, 97 on room air. HEENT: Head is atraumatic. Pupils equal. Oral cavity, no congestion. NECK: Supple. Thyroid not enlarged. JVD not elevated. CHEST: Symmetrical. CARDIOVASCULAR: S1, S2. LUNGS: Clear. ABDOMEN: Soft, bowel sounds are present. No mass palpable. EXTERNAL GENITALIA AND RECTAL: Deferred. NEUROLOGIC: No focal deficits. LABORATORY DATA: Shows a white count of 8, hemoglobin 15, platelets 270. Electrolytes show sodium 139, potassium 4.0, chloride 103, bicarbonate 27, BUN 13, creatinine 1.2, glucose 162. Troponin 0.017 x 3. Cholesterol is good at 164, LDL 78. TSH was 3.3. COVID test was negative. Chest x-ray, some scarring, no acute infiltrations. EKG negative for ischemia. FINAL IMPRESSION: 1. Chest pain for cardiac evaluation. Does not look like any cardiac event at this time more of a skeletomuscular or anxiety. 2. Known history of coronary artery disease, single vessel, had a stent in the LAD 2 years back, 6 months ago, had a stress test. 3. Hypertension, hyperlipidemia, diabetes. 4. Smoking. PLAN: This patient was admitted to the hospital. Cardiology consultation, probably could be discharged home today. Smoking counseling was done. Follow up as outpatient. ELVIA/ANTONY/CASPER DR: Aldo TID: [id number]
--- NOTE | 2021-01-25 10:56 | PDOC2 ---
CONSTANTINO SANTOYO DRUM PULLER 01/25/21 1056: CARDIAC CONSULT DATE OF CONSULT Date of Consult DATE: 01/25/21 TIME: 10:43 REASON FOR CONSULT Reason for Consult: Chest pain, hx of CAD stent REFERRING PHYSICIAN Referring Physician: Keyon SOURCE Source: Chart review, Patient HISTORY OF PRESENT ILLNESS HISTORY OF PRESENT ILLNESS This is a pleasant 60 yo male admitted for complains of chest pain. Reports that he was picking up branches bending over a lot when he started having some aching sensation to his right chest. It did not last long but when he checked his BP he thought it was high but could not tell me the number. Also it said irregular on his machine which made him anxious and promted him to come to ED. Reports that he thinks the battery is not good anymore on his machine. Upon admission he has not had recurrence of the chest discomfort and his BP has been well controlled and no arrhythmias. Verbalized no covid-19 vaccination and he has recovered from covid-19 infection in the past and no recent exposure. Denies any KOENIG. He thought also that he might have slept wrong which is why this happened. He has been compliant with hismedications and his DM has been controlled. No recent falls or injury. No associated diaphoresis, nausea or vomiting. No jaw tightness nor arm discomfort. PAST MEDICAL HISTORY Cardiovascular: CAD, HTN, Hyperlipidemia GI: GERD Musculoskeletal: Osteoarthritis Endocrine: Diabetes (2) PAST SURGICAL HISTORY Past Surgical History: Tonsillectomy, Other (PCI; right hand surgery) FAMILY HISTORY Family History: Heart Disease SOCIAL HISTORY Smoke: Quit ALCOHOL: none Drugs: None Lives: with Family ALLERGIES ALLERGIES: Coded Allergies: No Known Drug Allergies (Unverified , 09/10/19) ROS Review of System 14 point ROS evaluated with pertinent positives noted per HPI PHYSICAL EXAM General: Alert, Oriented X3, Cooperative, No acute distress HEENT: Atraumatic, Mucous membr. moist/pink Lungs: Clear to auscultation, Normal air movement Heart: Regular rate (SR), Normal S1, Normal S2, No murmurs Abdomen: Soft, No tenderness Extremities: No cyanosis, No edema Skin: No breakdown, No significant lesion Neuro: Normal speech, Sensation intact Psych/Mental Status: Mental status NL, Mood NL MUSCULOSKELETAL: Osteoarthritic changes both hands VITALS/I&O VITALS/I&O: Vital Signs Date Time Temp Pulse Resp B/P (MAP) Pulse Ox O2 Delivery O2 Flow Rate FiO2 01/25/21 07:00 97.4 67 18 116/66 (83) 98 Room Air 97.4 I & O 01/24/21 01/24/21 01/25/21 15:00 23:00 07:00 Intake Total 2000 ml 500 ml Output Total 850 ml Balance 2000 ml -350 ml LABS Lab: Laboratory Tests Test 01/24/21 11:42 01/24/21 12:37 01/24/21 14:36 01/24/21 17:48 White Blood Count 8.3 x10^3/uL (4.0-11.0) Red Blood Count 4.95 x10^6/uL (4.30-5.70) Hemoglobin 15.0 g/dL (13.0-17.5) Hematocrit 43.6 % (39.0-53.0) Mean Corpuscular Volume 88 fL (79-100) Mean Corpuscular Hemoglobin 30 pg (25-35) Mean Corpuscular Hemoglobin Concent 34 g/dL (31-37) Red Cell Distribution Width 13.3 % (11.5-14.5) Platelet Count 270 x10^3/uL (140-400) Neutrophils (%) (Auto) 58 % (31-73) Lymphocytes (%) (Auto) 33 % (24-48) Monocytes (%) (Auto) 7 % (0-9) Eosinophils (%) (Auto) 1 % (0-3) Basophils (%) (Auto) 1 % (0-3) Neutrophils # (Auto) 4.8 x10^3/uL (1.8-7.7) Lymphocytes # (Auto) 2.7 x10^3/uL (1.0-4.8) Monocytes # (Auto) 0.6 x10^3/uL (0.0-1.1) Eosinophils # (Auto) 0.1 x10^3/uL (0.0-0.7) Basophils # (Auto) 0.0 x10^3/uL (0.0-0.2) Sodium Level 139 mmol/L (136-145) Potassium Level 4.0 mmol/L (3.5-5.1) Chloride Level 103 mmol/L (98-107) Carbon Dioxide Level 27 mmol/L (21-32) Anion Gap 9 (6-14) Blood Urea Nitrogen 13 mg/dL (8-26) Creatinine 1.2 mg/dL (0.7-1.3) Estimated GFR (Cockcroft-Gault) 62.0 Glucose Level 162 mg/dL (70-99) H Calcium Level 9.4 mg/dL (8.5-10.1) Troponin I Quantitative < 0.017 ng/mL (0.000-0.055) < 0.017 ng/mL (0.000-0.055) < 0.017 ng/mL (0.000-0.055) EG-Hsz-X-Type Natriuretic Peptide 23 pg/mL (0-124) SARS-CoV-2 RNA (CRICKET) Negative (Negative) SARS-CoV-2 Antigen (Rapid) Negative (NEGATIVE) Test 01/24/21 21:48 01/25/21 05:45 01/25/21 07:32 Glucose (Fingerstick) 124 mg/dL (70-99) H 128 mg/dL (70-99) H Total Bilirubin 0.9 mg/dL (0.2-1.0) Direct Bilirubin 0.2 mg/dL (0.0-0.2) Aspartate Amino Transferase (AST) 12 U/L (15-37) L Alanine Aminotransferase (ALT) 38 U/L (16-63) Alkaline Phosphatase 99 U/L (46-116) Total Protein 6.8 g/dL (6.4-8.2) Albumin 3.6 g/dL (3.4-5.0) Triglycerides Level 167 mg/dL (0-150) H Cholesterol Level 154 mg/dL (0-200) LDL Cholesterol, Calculated 78 mg/dL (0-100) VLDL Cholesterol, Calculated 33 mg/dL (0-40) Non-HDL Cholesterol Calculated 111 mg/dL (0-129) HDL Cholesterol 43 mg/dL (40-60) Cholesterol/HDL Ratio 3.6 Thyroid Stimulating Hormone (TSH) 3.301 uIU/mL (0.358-3.74) Laboratory Tests 01/24/21 11:42 Laboratory Tests 01/24/21 11:42 ECHOCARDIOGRAM ECHOCARDIOGRAM <Conclusion> Left ventricular systolic function is within normal limits. EF 55%. Basal to mid inferior wall is moderately hypokinetic. Otherwise, normal wall motion. DATE: 05/04/20 [id number] STRESS TEST STRESS TEST Conclusion 1. Good exercise tolerance with the patient walking for 5 minutes and 56 seconds on a Panfilo protocol. 2. No chest pain with exertion. 3. No EKG evidence of stress-induced ischemia. 4. Nuclear imaging shows no reversible ischemia or infarct. 5. Left ventricular ejection fraction of 62% with no regional wall motion abnormalities. 6. Low risk treadmill nuclear stress test. DATE: 11/03/20 [id number] HEART CATH HEART CATH FINDINGS 1. Hemodynamics: Left ventricular end-diastolic pressure of 7 mmHg. No pullback gradient across the aortic valve. 2. Left ventriculography: Normal left ventricle systolic function with ejection fraction estimated at 55%. No significant mitral regurgitation seen. 3. Coronary angiography: a. The left main coronary artery arose from the left sinus of Valsalva, gave rise to the left anterior descending and left circumflex arteries and did not show any significant stenosis. b. The left anterior descending artery showed 90 to 95% stenosis involving the proximal to mid segment and 40% bifurcation stenosis involving mid to distal segment. c. The left circumflex artery was a large and dominant vessel that did not show any significant stenosis. d. The right coronary artery was a small and nondominant vessel that did not show any significant stenosis. INTERVENTION The left main coronary artery was engaged with a 6 Lao XB 3.5 guide catheter. The stenosis in the proximal to mid segment of the left anti-descending artery was crossed with a 0.014 inch Vivogig pro-water guidewire. This was predilated with a 2.5 x 15 mm trek balloon following which this was successfully treated with a 3.0 x 18 mm Amado Xience Negrita drug-eluting stent. Follow-up angiography showed resolution of the stenosis to 0% with HERNANDEZ-3 distal flow. Patient tolerated the procedure well. Hemostasis was achieved using TR band. There were no immediate complications. HERNANDEZ Flow HERNANDEZ Flow (Pre-Intervention): HERNANDEZ-2 HERNANDEZ Flow (Post-Intervention): HERNANDEZ-3 Conclusion 1. Severe single-vessel coronary disease. 2. Successful PCI/drug-eluting stent placement to the left anterior descending artery. 3. Normal left ventricular systolic function with ejection fraction estimated at 55%. Recommendations 1. Aspirin 325 mg daily for 1 month followed by 81 mg daily. 2. Prasugrel 10 mg daily. 3. Cardiovascular risk factor modification including smoking cessation. DATE: 09/15/19 0917 ASSESSMENT/PLAN ASSESSMENT/PLAN 1. Atypical chest pain: suspect MSK 2. CAD; prior stent, clinically stable 3. HLP: close to goal 4. HTN: controlled 5. DM2: per PCP Recommendations 1. Continue secondary prevention measures. 2. His cardiac testing are recent including MPI 3. Continue HBPM. 4. Follow up in office as scheduled. May DC per cardiac standpoint. SNOW DIAZ MD 01/25/21 1702: CARDIAC CONSULT ASSESSMENT/PLAN ASSESSMENT/PLAN Patient seen and examined. Agree with MARKETING ASSISTANT MANAGER's assessment and plan. Chest pain with atypical features and most probably musculoskeletal Recent stress test did not show any significant ischemia CAD status clinically stable overall Okay for DC from cardiac standpoint and follow-up as scheduled CONSTANTINO SANTOYO APRN Jan 25, 2021 10:56 SNOW DIAZ MD Jan 25, 2021 17:02
[2021-01-25 11:00] VITALS: BP 109/69
--- NOTE | 2021-01-25 11:58 | NUR ---
SS following for discharge planning. SS reviewed pt chart and discussed with pt RN. Pt is from home with spouse and is currently on room air. COVID19 negative. Cardiology consulted. Discharge order on the chart for home with self care.
--- NOTE | 2021-01-25 13:21 | NUR ---
Discharge instructions given. Prescription sent via electronic. Answered questions and concerns. Verbalized understanding. Pt refused to take am meds at this time. Stated he will take them when he gets home. Escorted out ambulating. Pt drove self.
[2021-01-26 01:11] LABS: HEMOGLOBIN A1C 7.3 % (4.8-5.6)
== END 2021-01-25 13:21 | disposition still patient (30) ==
LOC: ER 11:17 → ED HOLD 12:45 → 6 SOUTH 19:08
PROVIDERS: ADMIT Internal Medicine; ATTEND Internal Medicine
DX: R07.89 Other chest pain (principal); I25.10 Atherosclerotic heart disease of native coronary artery without angina pectoris; Z20.822 Contact with and (suspected) exposure to COVID-19; E78.5 Hyperlipidemia, unspecified; E78.00 Pure hypercholesterolemia, unspecified; E11.9 Type 2 diabetes mellitus without complications; I10 Essential (primary) hypertension; F17.200 Nicotine dependence, unspecified, uncomplicated; Z95.5 Presence of coronary angioplasty implant and graft; Z86.16 Personal history of COVID-19; Z79.899 Other long term (current) drug therapy
CPT/HCPCS: 36415; 71045; 80048; 80061; 80076; 82962; 83036; 83880; 84443; 84484; 85025; 87426; 93005; 99285; G0378; J1815; U0003; U0005; G0379

== ENCOUNTER → 2021-05-06 | Outpatient (CLI) | payer BC ==
[2019-09-15 13:59] VITALS: BP_DIAS 69
[2021-01-25 11:00] VITALS: BP_SYST 109
--- NOTE | 2021-05-06 10:26 | CARD ---
MR#: [id number] Date of Study: 05/06/2021 Ordering Physician: SNOW DIAZ, Referring Physician: SNOW DIAZ Tech: Latasha Wood [facility] APPROVED REPORT EXAM: Two-dimensional and M-mode echocardiogram with Doppler and color Doppler. Other Information Quality : Technically LimitedHR: 62bpm Rhythm : NSR INDICATION Cardiac Disease: CAD RISK FACTORS Hypertension Obesity Hyperlipidemia Diabetes 2D DIMENSIONS RVDd3.7 (2.9-3.5cm)Left Atrium(2D)3.7 (1.6-4.0cm) IVSd1.2 (0.7-1.1cm)Aortic Root(2D)3.7 (2.0-3.7cm) LVDd5.5 (3.9-5.9cm)LVOT Diameter2.5 (1.8-2.4cm) PWd1.2 (0.7-1.1cm)LVDs3.7 (2.5-4.0cm) FS (%) 32.3 %SV88.9 ml Aortic Valve AoV Peak Júnior.90.1cm/sAoV VTI21.4cm AO Peak GR.3.3mmHgLVOT Peak Júnior.91.1cm/s AO Mean GR.2mmHgAVA (VMAX)5.08cm2 Mitral Valve MV E Ftjthipv07.2cm/sMV DECEL [id number] MV A Zltlrvwx03.1cm/sE/A Ratio0.7 Pulmonary Valve PV Peak Efqigias33.8cm/s LEFT VENTRICLE The left ventricle is normal size. There is mild concentric left ventricular hypertrophy. The ejectio n fraction is mildly decreased. LV ejection fraction is estimated at 40%. There is mild global hypok inesis of the left ventricle. Transmitral Doppler flow pattern is Grade II-pseudonormal filling dynam ics. RIGHT VENTRICLE The right ventricle is normal size. There is normal right ventricular wall thickness. The right ventr icular systolic function is normal. ATRIA The left atrium size is normal. The right atrium size is normal. AORTIC VALVE The aortic valve is normal in structure and function. Doppler and Color Flow revealed trace aortic re gurgitation. There is no significant aortic valvular stenosis. MITRAL VALVE The mitral valve is normal in structure and function. There is no evidence of mitral valve prolapse. There is no mitral valve stenosis. Doppler and Color-flow revealed mild mitral regurgitation. TRICUSPID VALVE The tricuspid valve is normal in structure and function. Doppler and Color Flow revealed no tricuspid valve regurgitation noted. There is no tricuspid valve stenosis. PULMONIC VALVE The pulmonary valve is normal in structure and function. Doppler and Color Flow revealed no pulmonic valvular regurgitation. GREAT VESSELS The aortic root is normal in size. The ascending aorta is normal in size. The IVC is dilated and varun apses <50% with inspiration. PERICARDIAL EFFUSION There is no evidence of significant pericardial effusion. Critical Notification Critical Value: No <Conclusion> The left ventricle is normal size. The ejection fraction is mildly decreased. LV ejection fraction is estimated at 40%. There is mild global hypokinesis of the left ventricle. There is mild concentric left ventricular hypertrophy. Doppler and Color Flow revealed trace aortic regurgitation. There is no significant aortic valvular stenosis. Doppler and Color-flow revealed mild mitral regurgitation. Doppler and Color Flow revealed no tricuspid valve regurgitation noted. Signed by : Lonnie Littlejohn MD Electronically Approved : 05/06/2021 10:25:55
== END ==
LOC: ECHO 07:43
PROVIDERS: ATTEND Internal Medicine Cardiovascular Disease
DX: I34.0 Nonrheumatic mitral (valve) insufficiency (principal); I51.7 Cardiomegaly; I25.10 Atherosclerotic heart disease of native coronary artery without angina pectoris
CPT/HCPCS: 93306